=== PATIENT | female | born 1935 | race Caucasian/White ===

== ENCOUNTER 2018-09-03 11:42 | Day surgery (SDC) | payer OTHER ==
[2018-09-03] MEDS ORDERED: FENTAnyl 50 MCG/ML VIAL (13:16)
[2018-09-03] MEDS ORDERED: PROPOFOL 40 ML (13:16)
[2018-09-03] MEDS ORDERED: LIDOCAINE 100 MG SYRINGE (13:16)
== END 2018-09-03 14:42 | disposition home or self-care (01) ==
LOC: GIL 11:42
DX: K94.23 Gastrostomy malfunction (principal); Y83.3 Surgical operation with formation of external stoma as the cause of abnormal reaction of the patient, or of later complication, without mention of misadventure at the time of the procedure; E78.00 Pure hypercholesterolemia, unspecified; I10 Essential (primary) hypertension; Z95.0 Presence of cardiac pacemaker; Z85.038 Personal history of other malignant neoplasm of large intestine
CPT/HCPCS: 43246